=== PATIENT | male | born 1965 | race Caucasian/White ===

== ENCOUNTER → 2017-01-14 | Outpatient (CLI) | payer BC ==
[~2017-01-14] MED LIST: PRLSR20 PO
[2017-01-14 16:38] LABS: BASO % 0.4 %; BASO ABS # 0.03 K/uL (0-0.2); COMPLETE YES; EOS % 5.3 %; HEMATOCRIT 48.2 % (42-52); IG% 0.2 %; LYMPH % 28.7 %; LYMPH ABS # 2.42 K/uL (1.2-3.4); MEAN CELL VOLUME 86.1 fL (80-100); MEAN CORPUSCULAR HEMOGLOBIN 30.4 pg (25-34); MEAN CORPUSCULAR HGB CONC 35.3 g/dl (32-36); MEAN PLATELET VOLUME 11.9 fL (7.4-10.4); NEUT % 58.4 %; PLATELET COUNT 174 K/uL (130-400); WHITE BLOOD COUNT 8.43 K/uL (4.8-10.8)
--- NOTE | 2017-01-14 16:42 | DIAGNOSTIC IMAGING REPORT ---
TWO VIEW CHEST CLINICAL HISTORY: Preoperative examination. FINDINGS: PA and lateral chest radiographs are obtained. No prior studies are available for comparison at the time of dictation. The PA view is mildly degraded by patient rotation. The cardiomediastinal silhouette is unremarkable. The lungs and pleural spaces are clear. There is no pneumothorax. The bony thorax appears intact. IMPRESSION: No active disease in the chest. Electronically signed by: Dontae Calhoun M.D. 01/14/2017 4:40 PM Dictated Date/Time: 01/14/2017 4:40 PM
[2017-01-14 16:45] LABS: PROTHROMBIN TIME (PATIENT) 11.1 SECONDS (9.0-12.0)
[2017-01-14 16:58] LABS: URINE APPEARANCE CLEAR (CLEAR); URINE BILIRUBIN NEG (NEG); URINE COLOR YELLOW; URINE NITRITE NEG (NEG); UROBILINOGEN NEG (NEG)
[2017-01-14 17:04] LABS: BLOOD UREA NITROGEN 18 mg/dl (7-18); CALCIUM 9.4 mg/dl (8.5-10.1); CARBON DIOXIDE 25 mmol/L (21-32); CHLORIDE 107 mmol/L (98-107); GLUCOSE 83 mg/dl (70-99); MANUAL MICROSCOPIC REQUIRED? NO; POTASSIUM 4.2 mmol/L (3.5-5.1); REVIEW REQ? NO; SODIUM 141 mmol/L (136-145)
== END | disposition home or self-care (01) ==
LOC: C.CPL 16:00
PROVIDERS: ATTEND Orthopaedic Surgery Orthopaedic Surgery of the Spine
DX: Z01.818 Encounter for other preprocedural examination (principal)

== ENCOUNTER 2017-01-25 05:30 | Inpatient (IN) | payer BC ==
--- NOTE | 2017-01-22 11:23 | HISTORY & PHYSICAL EXAMINATION ---
DATE OF ADMISSION: 01/25/2017 CHIEF COMPLAINT: Neck pain, arm pain, trapezius pain, weakness, shoulder numbness, tingling, significant kyphosis cervical spine and disc issues, cervical spine C5-C6 and C6-C7. HISTORY OF PRESENT ILLNESS: Roque is a delightful gentleman. I have known him for significant period of time. He has significant neck issues. He is signing up for elective surgery, an anterior approach cervical spine on 01/25/2017. PAST MEDICAL HISTORY: Positive for acid reflux, sleep apnea. No kidney stones, liver hepatitis, no carcinoma. No hypertension, COPD, diabetes, negative as well. SOCIAL HISTORY: Nonsmoker, nonalcohol user. PAST SURGICAL HISTORY: Sinus hernia, appendectomy. ALLERGIES: ENVIRONMENTAL. MEDICATIONS: Nadine and some Dodson for pain. FAMILY HISTORY: Noncontributory. REVIEW OF SYSTEMS: He denies any blurred vision, double vision, tinnitus, vertigo, some headaches. No fevers, sweats, chills. Denies chest pain, shortness of breath. No nausea, vomiting. No urgency, frequency. Denies nausea, vomiting, diarrhea, constipation, urgency, frequency, dysuria. OBJECTIVE: GENERAL: He is alert, oriented, pleasant gentleman. VITAL SIGNS: Blood pressure 130/80, pulse of 80, respiratory rate 16, temperature 97.4. CARDIAC: Normal S1, S2, no S3. LUNGS: Clear to auscultation. No rales, rhonchi or wheezing. ABDOMEN: Soft, nontender. NEUROLOGIC: Demonstrates positive Spurling maneuver and Lhermitte sign, loss of photographic technician strength, triceps function also decreased. No upper motor neuron pathology. Images demonstrate severe degenerative changes C5-C6 and C6-C7 along with cord compression. IMPRESSION: Cervical myelopathy with cord compression C5-C6 and C6-C7 cervical. DISPOSITION: 1. Includes instructions, precautions, education to his pathology. 2. He is being scheduled for surgery coming up on 01/25/2017 at [facility], a 2-level ACDF cervical spine with left iliac crest bone graft. The surgery will be at C5-C6 and C6-C7 cervical spine.
[2017-01-25] VITALS (12 sets, daily range): BP systolic 114–173; BP diastolic 71–98; PULSE 59–115; TEMP 36.4–36.9; O2SAT 92–98; Ht 180.3 cm; Wt 100.0 kg
[~2017-01-25] VITALS: Ht 180.3 cm; Wt 100.0 kg
[2017-01-25] MEDS ORDERED: NSS 1000ML IV SCH (06:00)
[2017-01-25] MEDS: CEFAZOLIN 2000 MG/60 ML D5W 60 ML IV SCH ×2 (06:24→07:35)
[2017-01-25] MEDS ORDERED: ONDANSETRON INJ 2 MG/ML 2 ML VIAL ONE ×2 (06:35→13:13)
[2017-01-25] MEDS ORDERED: ROCURONIUM BROMIDE 10 MG/ML 5 ML VIAL ONE ×2 (06:35→07:53)
[2017-01-25] MEDS ORDERED: NEOSTIGMINE METHYLSULFATE 5 MG/5 ML SYR ONE (06:35)
[2017-01-25] MEDS ORDERED: LIDOCAINE HCL 2% 2 ML VIAL (20MG/ML) ONE (06:35)
[2017-01-25] MEDS ORDERED: PROPOFOL IV EMULSION 10 MG/ML 20 ML VIAL IV ONE ×2 (06:35→08:49)
[2017-01-25] MEDS ORDERED: GLYCOPYRROLATE INJ 0.2 MG/ML VIAL ONE (06:35)
[2017-01-25] MEDS ORDERED: MIDAZOLAM HCL 1 MG/ML 2ML VIAL ONE (06:36)
[2017-01-25] MEDS ORDERED: FENTANYL CITRATE INJ 50 MCG/1 ML 2 ML VIAL ONE ×3 (06:36→08:26)
[2017-01-25] MEDS ORDERED: GELATIN SPONGE SZ 100 ONE ×2 (06:59→09:25)
[2017-01-25] MEDS ORDERED: BACITRACIN 50000 UNIT VIAL ONE (06:59)
[2017-01-25] MEDS ORDERED: THROMBIN FOR SOLN 20000 UNIT KIT ONE (06:59)
[2017-01-25] MEDS ORDERED: BUPIVACAINE/EPINEPHRINE 0.5% MPF 1:200,000 30 ML VIAL ONE (06:59)
[2017-01-25] MEDS ORDERED: ATROPINE SULFATE 0.1 MG/ML 5ML SYR IV PRN (07:15)
[2017-01-25] MEDS ORDERED: ONDANSETRON INJ 2 MG/ML 2 ML VIAL IV PRN ×2 (07:15→10:30)
--- NOTE | 2017-01-25 07:28 | History & Physical Bridge Note ---
H&P Re-Evaluation Bridge Note: I have examined the patient, reviewed the History & Physical and in the interval since the performance of the History & Physical I have noted the following changes of clinical significance: No changes noted
[2017-01-25] MEDS ORDERED: DEXAMETHASONE SOD INJ 4 MG/ML VIAL ONE (07:55)
[2017-01-25] MEDS ORDERED: HYDROmorphone INJ 2 MG/ML SYR/VIAL ONE (09:45)
--- NOTE | 2017-01-25 10:08 | DIAGNOSTIC IMAGING REPORT ---
Cervical SPINE, INTRAOPERATIVE FLUOROSCOPY HISTORY: ACDF C5-C7. FLUOROSCOPY TIME: 5 seconds. FINDINGS: Intraoperative fluoroscopy was provided for the cervical spine. A single fluoroscopic spot image of the cervical spine. Anterior cervical discectomy and fusion from C5 through C7. The hardware appears intact. IMPRESSION: Fluoroscopy provided for a C5-C7 ACDF.. Electronically signed by: Shree Montejo M.D. 01/25/2017 10:06 AM Dictated Date/Time: 01/25/2017 10:06 AM
--- NOTE | 2017-01-25 10:24 | [facility] Post Operative Brief Note ---
Immediate Operative Summary Operative Date Jan 25, 2017. Pre-Operative Diagnosis Cervical Myelopathy with cord compression, C5-C7 Post-Operative Diagnosis Cervical Myelopathy with cord compression, C5-C7 Procedure(s) Performed C5-C6, C6-C7 Anterior Cervical Discectomy and Fusion with Iliac Crest Bone Graft Nickel Hypersensitivity Shelfish Allergy - Throat Swelling/SOB Surgeon Dr. Hope General House Worker Surgeon(s) NE Singer Estimated Blood Loss 30ML Findings Cord compression Specimens none per surgeon Complication(s) None Disposition Recovery Room / PACU
[2017-01-25] MEDS ORDERED: MAGNESIUM HYDROXIDE SUSP 30 ML UDC PO PRN (10:30)
[2017-01-25] MEDS ORDERED: NALOXONE HCL 0.4 MG/1 ML VIAL/CARP IV PRN (10:30)
[2017-01-25] MEDS ORDERED: HYDROmorphone INJ 0.5 MG/0.5 ML SYR IV PRN (10:30)
[2017-01-25] MEDS ORDERED: DEXAMETHASONE INJ 8 MG in SYRINGE 0 ML IV PRN (10:30)
[2017-01-25] MEDS ORDERED: ACETAMINOPHEN IV 100 ML IV PRN (10:30)
[2017-01-25] MEDS ORDERED: RACEPINEPHRINE 2.25% NEBU SOLN 0.5 ML VIAL INH PRN (10:30)
[2017-01-25] MEDS: LABETALOL HCL IV 5 MG/ML 20ML IV PRN ×3 (10:38→10:51)
[2017-01-25] MEDS: HYDROmorphone INJ 2 MG/ML SYR/VIAL IV PRN ×8 (10:50→11:25)
[2017-01-25] MEDS ORDERED: HydrALAZINE HCL 20 MG/ML VIAL ONE (11:17)
[2017-01-25] MEDS ORDERED: HydrALAZINE HCL 20 MG/ML VIAL IV. PRN (11:45)
[2017-01-25] MEDS ORDERED: IV FLUIDS COMPLETED PRN (11:45)
[2017-01-25] MEDS: HYDROmorphone INJ 1 MG/ML SYR ONE (11:47)
--- NOTE | 2017-01-25 12:38 | Anesthesiology Progress Note ---
Anesthesia Post Op Note Date & Time Jan 25, 2017 at 12:37 Vital Signs Pain Intensity: 4 Vital Signs Past 12 Hours Date Time Temp Pulse Resp B/P Pulse Ox O2 Delivery O2 Flow Rate FiO2 01/25/17 12:20 86 12 154/98 94 Nasal Cannula 4 01/25/17 12:10 36.5 84 16 163/90 95 Nasal Cannula 4 01/25/17 12:00 97 18 149/96 97 Nasal Cannula 4 01/25/17 11:50 90 16 158/110 96 Nasal Cannula 4 01/25/17 11:40 83 14 174/103 96 Nasal Cannula 4 01/25/17 11:30 79 12 160/105 97 Nasal Cannula 4 01/25/17 11:20 84 14 166/90 98 Nasal Cannula 4 01/25/17 11:10 54 12 160/102 96 Nasal Cannula 4 01/25/17 11:00 53 18 176/105 98 Nasal Cannula 4 01/25/17 10:50 68 21 183/99 100 Mask 10 01/25/17 10:40 60 13 170/109 100 Mask 10 01/25/17 10:30 53 14 155/101 99 Mask 10 01/25/17 10:24 36.5 65 12 171/91 100 Mask 10 01/25/17 05:48 36.7 59 20 128/92 97 Room Air Notes Mental Status: alert / awake / arousable, participated in evaluation Pt Amnestic to Procedure: Yes Nausea / Vomiting: adequately controlled Pain: adequately controlled Airway Patency, RR, SpO2: stable & adequate BP & HR: stable & adequate Hydration State: stable & adequate Anesthetic Complications: no major complications apparent
--- NOTE | 2017-01-25 12:50 | OPERATIVE REPORT ---
DATE OF OPERATION: 01/25/2017 PREOPERATIVE DIAGNOSIS: Spinal cord compression and spinal deformity C5-C6, C6-C7. POSTOPERATIVE DIAGNOSIS: Same. PROCEDURE: Include ACDF cervical spine C5-C6, C6-C7, from anterior approach plus left iliac crest bone graft. Structural autograft from the left iliac crest, anterior plating as well. COMPLICATIONS: Zero. SPONGE AND NEEDLE COUNT: Correct at the close of the procedure. ESTIMATED BLOOD LOSS: 30 mL IMPLANTS USED: By the [employer] and structural left anterior autograft. DESCRIPTION OF PROCEDURE: The patient was taken to the operating room and general intubated anesthetic provided to the patient, kept supine, prepped and draped sterile and secured. We made a transverse skin incision roughly over the C6 vertebrae dissecting the soft tissue. Carefully came down in the anterior aspect of the cervical spine. We were able to rita the C5-C6 interspace. We did a formal discectomy at C5-6 and C6-C7. Identical procedures were used to bur, curettes. We got back to the cord. We got past the posterior longitudinal ligament, past the disc osteophyte complex as well. We also did good foraminotomies, left and right at both levels. I was pleased with the decompression. We then on the left iliac crest, made a skin incision, fascial incision, able to harvest 2 autografts from the exposed the iliac crest and measured roughly 7 - 8 mm in height tapered to 7 mm. They were approximately 16 mm in length. These were placed into discectomy sites at C5-C6 and C6-C7. An anterior plate from the [employer] placed over the construct, 34 mm in length, secure with screws, a total of 6. The screws were 16 mm in length. We irrigated, closed with 2-0 Vicryl suture and 4-0 Monocryl in the cervical spine, Steri-Strips applied. A collar applied. The patient returned to PACU stable. The iliac crest was closed likewise with 1-0 Vicryl, 2-0 and 3-0 nylon. Sterile dressings applied throughout. Patient again to PACU improved, stable. No apparent complications with the procedure. I attest to the content of the Intraoperative Record and any orders documented therein. Any exceptio ns are noted below.
[2017-01-25] MEDS: SODIUM CHLORIDE 0.9% 1000ML 1,000 ML IV SCH ×2 (14:12→22:53)
[2017-01-25] MEDS: OXYCODONE/ACETAMINOPHEN 5-325 TAB PO PRN (15:58)
[2017-01-25] MEDS: DEXAMETHASONE INJ 6 MG in SYRINGE 0 ML IV SCH ×2 (15:58→23:32)
[2017-01-25] MEDS: CEFAZOLIN IV 1,000 MG in DEXTROSE 5% 50ML 50 ML IV SCH ×2 (15:59→23:32)
[2017-01-25] MEDS: HYDROmorphone INJ 1 MG/ML SYR IV PRN ×2 (17:30→22:58)
[2017-01-25] MEDS: LORAZEPAM INJ 0.5 MG in SYRINGE 0.75 ML IV PRN (18:49)
[2017-01-25] MEDS: DOCUSATE SODIUM 100 MG CAP PO SCH (21:10)
[2017-01-26] VITALS (13 sets, daily range): BP systolic 118–148; BP diastolic 75–88; PULSE 88–103; TEMP 36.7–37.5; O2SAT 2–96
[2017-01-26] MEDS ORDERED: LACTATED RINGER'S 1000ML IV SCH (06:00)
[2017-01-26] MEDS: HYDROmorphone INJ 1 MG/ML SYR IV PRN ×2 (06:00→09:29)
[2017-01-26] MEDS: LORAZEPAM INJ 0.5 MG in SYRINGE 0.75 ML IV PRN (06:23)
--- NOTE | 2017-01-26 07:28 | Discharge Instructions ---
Discharge Instructions Date of Service Jan 26, 2017. Admission Reason for Admission: Cervical Disc Displacement Discharge Discharge Diagnosis / Problem: cord compression Discharge Goals Goal(s): Improve function Activity Recommendations Activity Limitations: as noted below Lifting Limitations: until after follow-up appointment Exercise/Sports Limitations: until after follow-up appointment May Resume Sexual Activity: after follow-up appointment Shower/Bathe: keep incision dry Driving or Machine Use: home, rest, recover . Instructions / Follow-Up Instructions / Follow-Up MEDICATIONS: Please take your prescriptions as instructed at your pre-op appointment. SPECIAL CARE: The following information is intended to answer some of the common questions and concerns regarding your surgery. Each patient is an individual and receives individual counselling throughout the course of treatment, from diagnosis to surgery all the way through recovery. What follows is not an exhaustive list, but should be a useful guide to some of the common questions and concerns patients have regarding their surgeries. These are not provided to keep you from calling us; rather, they give you something accurate and concrete to reference as you recover from your procedure. If you need us, we are available to you. As always, if you are not sure about something, call us at [phone]. MEDICAL EMERGENCIES: For these conditions, call 911 or go to your local hospital-based Emergency Department - not [facility] or equivalent. * Paralysis * Severe chest pain or difficulty breathing * Swelling or redness of either leg Spine procedures can be rather complex and though complications are rare, they do occur. In such cases, effective advice regarding emergency situations cannot always be addressed over the telephone. You may be referred to the emergency department for more effective management of your problem. Activity Limitations: It is important to give your body time to heal, so please limit your activities : * In general, don't do anything that moves your spine too much. You should avoid contact sports, twisting or heavy lifting while you recover. * 5-10 pounds is all you should attempt to lift. * You should not plan on driving for approximately 3 weeks and you should avoid traveling more than 30-45 minutes at a time. Longer trips should be broken down with walking breaks spaced appropriately. * Physical therapy is not usually required. * Walking and good posture practices will help you recover and regain your function. * Avoid straining or sudden changes in position. * In general, the goal is to take it easy and recover. Don't cause any new problems. Just relax. Showers: * Do not take a bath, use a Jacuzzi or hot tub or otherwise submerge your incision. * It is usually safe to take a shower 4-5 days after your surgery. * Your incision does not require any special creams or ointments. * Simply clean it with soap and water, dry and re-dress with a clean bandage afterwards. Incision: * Keep incision clean, dry and protected until your first follow-up appointment. * Some amount of drainage and redness is normal. Any drainage should be fairly clear and not have a foul odor. * If you feel anything is wrong or you have excessive drainage, please call us. * Your stitches and milena will be removed 10-14 days after your surgery. At the time of your first post-op visit. * Neck surgeries are typically closed with a suture underneath the skin. The steri-strips over the incision should be maintained until we see you in the office. Bracing: * You may be provided with a back or neck brace to encourage good posture and prevent injury. It will remind you not to do too much as you heal and will alert others to the fact that you have had a surgery. * Back braces may be removed for showers and when you are resting at home. They must be worn when you are walking around for any period of time or for travel. * For neck surgery, you will likely be provided with two cervical collars. The soft collar (Burns or foam rubber) is worn most commonly throughout the day and while sleeping. The plastic collar (provided at the hospital) is for showering/bathing. * Except while eating, collars should remain in place. More specifically, bracing is provided for a purpose and should be worn. * Please obtain your brace or collars prior to your operation and bring them to the hospital with you on the day of surgery. * You should also bring your collars to your post-op appointment with Dr. Hope. You should always take good care of your body and practice healthy habits, especially following surgery. You should: * Follow your doctor's treatment plan * Sit and stand properly with good posture (ears over shoulders, shoulders over hips) Don't slouch * Learn to lift correctly * Exercise regularly (low-impact aerobic exercise is especially good, but check with your doctor first) * Generally, be up and walking for 5-10 minutes at a time at least 3-4 times per day from the day you get home * Increasing walking to tolerance until you can walk for 20-30 minutes at a time * Attain and maintain a healthy body weight * Eat healthy foods ( a well-balanced, low-fat diet rich in fruits and vegetables) and get enough calcium * Avoid excessive use of alcohol When to call our office - If you notice any of the following: * Increased pain not relieve by pain medicine * Fevers greater then 100 degrees F, chills or flu symptoms * Increased redness around incision * Drainage from the incision that is not clear * Any foul smelling drainage * Swelling or fluid collection beneath the skin Miscellaneous: * In the hospital, you may be given a walker or cane for support while walking. These are temporary needs and are intended to prevent injuries due to falls. You may discontinue them when you feel strong and steady enough on your feet. * Sleep in a comfortable position. We find that many patients find a lounge chair or recliner with several pillows to be beneficial in the early post-operative period. * The support stockings should be used for 7-10 days and may be discontinued when you are back to walking more and conducting usual household activities. No problem is insignificant. We are here to help you and get you well. Contact us at [phone]. Definitions: Foraminotomy: If part of the disc or a bone spur (osteophyte) is pressing on a nerve as it leaves the vertebra (through an exit called the foramen), a foraminotomy may be done. Otomy means "to make an opening." A foraminotomy is making the opening of the foramen larger, so the nerve can exit without being compressed. Laminotomy: Similar to the foraminotomy, a laminotomy makes a larger opening, this time in your bony plate protecting your spinal canal and spinal cord (the lamina). The lamina may be pressing on your nerve, so the surgeon may make more room for the nerves using a laminotomy. Laminectomy: Sometimes, a laminotomy is not sufficient. The surgeon may need to remove all or part of the lamina. This procedure is called a laminectomy. This can often be done at many levels without any harmful effects. Current Hospital Diet Patient's current hospital diet: Full Liquid Diet Discharge Diet Recommended Diet: Regular Diet Fluid Restriction: None Procedures Procedures Performed: C5-C6, C6-C7 Anterior Cervical Discectomy and Fusion with Iliac Crest Bone Graft Nickel Hypersensitivity Shelfish Allergy - Throat Swelling/SOB Pending Studies Studies pending at discharge: no Medical Emergencies . Who to Call and When: Medical Emergencies: If at any time you feel your situation is an emergency, please call 911 immediately. . Non-Emergent Contact Non-Emergency issues call your: Surgeon . "Provider Documentation" section prepared by [facility]. VTE Core Measure Inpt VTE Proph given/why not?: Treatment not indicated
--- NOTE | 2017-01-26 07:45 | Anesthesiology Progress Note ---
Anesthesia Post Op Note Date & Time Jan 26, 2017 at 07:44 Vital Signs Pain Intensity: 4.0 Vital Signs Past 12 Hours Date Time Temp Pulse Resp B/P Pulse Ox O2 Delivery O2 Flow Rate FiO2 01/26/17 05:30 36.7 93 16 123/76 94 Nasal Cannula 2.0 01/26/17 03:38 98 16 93 Nasal Cannula 2.0 01/26/17 03:30 37.5 101 14 118/76 94 Nasal Cannula 2.0 01/26/17 01:30 37.0 103 16 134/79 95 Nasal Cannula 2.0 01/25/17 23:30 106 16 94 Nasal Cannula 2.0 01/25/17 23:30 36.9 108 16 114/72 95 Nasal Cannula 2.0 01/25/17 23:15 Nasal Cannula 2.0 01/25/17 21:30 36.5 108 16 137/92 92 Nasal Cannula 2.0 Notes Mental Status: alert / awake / arousable, participated in evaluation Pt Amnestic to Procedure: Yes Nausea / Vomiting: adequately controlled Pain: adequately controlled Airway Patency, RR, SpO2: stable & adequate BP & HR: stable & adequate Hydration State: stable & adequate Anesthetic Complications: no major complications apparent pain controlled per patient
[2017-01-26] MEDS: DEXAMETHASONE INJ 6 MG in SYRINGE 0 ML IV SCH (07:48)
[2017-01-26] MEDS: CEFAZOLIN IV 1,000 MG in DEXTROSE 5% 50ML 50 ML IV SCH (07:50)
[2017-01-26] MEDS: DOCUSATE SODIUM 100 MG CAP PO SCH (08:43)
[2017-01-26] MEDS ORDERED: PANTOprazole SOD 40 MG TAB PO SCH (09:00)
[2017-01-26] MEDS: SODIUM CHLORIDE 0.9% 1000ML 1,000 ML IV SCH (11:24)
--- NOTE | 2017-01-26 12:58 | DISCHARGE SUMMARY ---
SUBJECTIVE: Moderate complaints of pain. Denies numbness, tingling, vascular issues. Mentation normal. OBJECTIVE: 36.7 temperature; blood pressure stable; pulse 91, regular. ASSESSMENT: Status post anterior cervical discectomy and fusion, 2 levels with left iliac crest bone graft. DISPOSITION: Will change his dressings later on today around lunchtime. He will be discharged home around 3:00 or 4:00 this afternoon. He was given instructions in the office and here at the hospital. He has a collar for support. He has medication at home. He is to keep his wound clean and dry and dressing changed approximately every 48 hours.
[2017-01-26] MEDS: OXYCODONE/ACETAMINOPHEN 5-325 TAB PO PRN (13:49)
[2017-01-27] MEDS ORDERED: BISACODYL 5 MG TABEC PO PRN (06:00)
[2017-01-27] MEDS ORDERED: BISACODYL 10 MG SUPP PR PRN (06:00)
== END 2017-01-26 16:17 | disposition home or self-care (01) | DRG 473 ==
LOC: ENRESERVTM → ENRESERVDT → C.ACU 05:30 → OBSVTOIN 05:31 → C.3E 05:31 → UNDOADMOB 10:28
PROVIDERS: ADMIT Orthopaedic Surgery Orthopaedic Surgery of the Spine; ATTEND Orthopaedic Surgery Orthopaedic Surgery of the Spine
PROC: 0RG207J Fusion of 2 or more Cervical Vertebral Joints with Autologous Tissue Substitute, Posterior Approach, Anterior Column, Open Approach (ICD-10-PCS; principal; 2017-01-25 07:30)
PROC: 0QB30ZZ Excision of Left Pelvic Bone, Open Approach (ICD-10-PCS; principal; 2017-01-25 07:30)
PROC: 0RB30ZZ Excision of Cervical Vertebral Disc, Open Approach (ICD-10-PCS; principal; 2017-01-25 07:30)
DX: M50.022 Cervical disc disorder at C5-C6 level with myelopathy (principal); M50.223 Other cervical disc displacement at C6-C7 level; K21.9 Gastro-esophageal reflux disease without esophagitis; M40.202 Unspecified kyphosis, cervical region; G47.30 Sleep apnea, unspecified